=== PATIENT | female | born 1975 | race African-American/Black ===

== ENCOUNTER 2017-03-24 10:21 | Emergency (ER) | payer MEDICAID, OTHER ==
[~2017-03-24] VITALS: Ht 165.1 cm; Wt 73.0 kg
[2017-03-24 10:29] VITALS: BP 147/74
[2017-03-24] MEDS ORDERED: [UNRECOGNIZED DRUG - OTHER] (10:34)
[2017-03-24] MEDS ORDERED: SITA50TA3 PO (10:34)
[2017-03-24] MEDS ORDERED: KETOROLAC 60MG/2ML VIAL IM ONE (13:00)
== END 2017-03-24 13:15 | disposition home or self-care (01) ==
LOC: ER 10:38
DX: R51 Headache (principal); M54.2 Cervicalgia; M62.838 Other muscle spasm; M25.511 Pain in right shoulder; E11.9 Type 2 diabetes mellitus without complications; Z90.49 Acquired absence of other specified parts of digestive tract; Z90.710 Acquired absence of both cervix and uterus; Z98.51 Tubal ligation status
CPT/HCPCS: 96372; 99283; J1885